=== PATIENT | female | born 1995 | race Caucasian/White ===

== ENCOUNTER → 2017-11-26 | Outpatient (CLI) | payer OTHER | LOC: LAB 15:48 | PROVIDERS: ATTEND Surgery | DX: L98.9 Disorder of the skin and subcutaneous tissue, unspecified (principal) | CPT/HCPCS: 36415; 86618; 86666; 86668; 86757 ==

== ENCOUNTER → 2018-05-26 | Outpatient (CLI) | payer OTHER ==
--- NOTE | 2018-05-26 14:44 | Diagnostic Imaging Report ---
PROCEDURE: US Non-OB pelvis comp/trans. TECHNIQUE: Multiple realtime grayscale images were obtained of the pelvis in various projections endovaginally. Transabdominal imaging was also performed. INDICATION: Pelvic pressure and dyspareunia. FINDINGS: The uterus measures 7.0 x 4.4 x 3.2 cm. Endometrium is thin at 1-2 mm. No myometrial mass is detected. Ovaries could not be visualized due to bowel gas. No adnexal mass or free fluid is seen. IMPRESSION: Nonvisualized ovaries. The study is otherwise unremarkable. Dictated by: Dictated on workstation # [id number]
== END ==
LOC: RAD 13:11
PROVIDERS: ATTEND Obstetrics & Gynecology
DX: N94.19 Other specified dyspareunia (principal); R10.2 Pelvic and perineal pain
CPT/HCPCS: 76830; 76856

== ENCOUNTER → 2021-06-13 | Outpatient (CLI) | payer BC | LOC: LAB 15:35 → MERGE 15:35 | PROVIDERS: ATTEND Obstetrics & Gynecology | DX: Z36.89 Encounter for other specified antenatal screening (principal) | CPT/HCPCS: 36415; 82105 ==

== ENCOUNTER → 2021-06-30 | Outpatient (CLI) | payer BC ==
--- NOTE | 2021-06-30 15:59 | Diagnostic Imaging Report ---
INDICATION: Routine anatomic survey TECHNIQUE: Multiple real-time grayscale images were obtained over the gravid uterus. COMPARISON: None FINDINGS: Single live intrauterine is identified. heart rate is documented at 152 bpm. position is cephalic. Amniotic fluid was not objectively measured, but subjectively appears to be within normal limits. Dominant placenta is identified posterior. There is however an additional area of placenta-like tissue identified anteriorly. There is suggestion of thin connection extending along the lateral margins of the gestational sac (image 61). Findings are highly suspicious for succenturiate placental lobe. Focal contraction is also a consideration. Cervix is closed and measures 4 cm in length. Anatomic survey was performed. There is mild pelviectasis bilaterally measuring 2 to 3 mm. There is no dilatation of the calyces. Anatomic survey is otherwise grossly unremarkable. Please see below for size and date measurements, as well as estimated weight. Biometrical measurements are as follows: Biparietal 4.94 cm, age 21 weeks 0 days. Head circumference 18.53 cm, age 21 weeks 0 days. Abdominal circumference 15.24 cm, age 20 weeks 4 days. Femur length 3.30 cm, age 20 weeks 3 days. Sonographic estimate age: 20 weeks 6 days. Sonographic estimated date of delivery: 11/11/2021. CLINICAL DATES: 20 weeks and 2 days with estimated date of delivery of 11/15/2021 Estimated Weight: 355 gm (+/- 52 gm). LMP percentile: 55%. heart rate: 152 beats per minute. number: 1 of 1. IMPRESSION: 1. Single live intrauterine . 2. Mild bilateral pelviectasis, but no appreciable calyceal dilatation. Follow-up is advised. 3. Probable succenturiate placental lobe. Anterior uterine contraction is also a consideration. This could be followed, as well. Dictated by: Dictated on workstation # [id number]
== END ==
LOC: RAD 10:00
PROVIDERS: ATTEND Obstetrics & Gynecology
DX: O99.891 Other specified diseases and conditions complicating pregnancy (principal); N13.30 Unspecified hydronephrosis; Z3A.20 20 weeks gestation of pregnancy
CPT/HCPCS: 76805

== ENCOUNTER → 2021-10-11 | Outpatient (CLI) | payer BC | LOC: LABNPT 10:48 | PROVIDERS: ATTEND Obstetrics & Gynecology | DX: O13.9 Gestational [pregnancy-induced] hypertension without significant proteinuria, unspecified trimester (principal) | CPT/HCPCS: 82570; 84156 ==

== ENCOUNTER → 2021-10-17 | Outpatient (CLI) | payer BC | LOC: LABNPT 10:47 | PROVIDERS: ATTEND Obstetrics & Gynecology | DX: O14.93 Unspecified pre-eclampsia, third trimester (principal); Z3A.00 Weeks of gestation of pregnancy not specified | CPT/HCPCS: 82570; 84156 ==

== ENCOUNTER 2021-10-23 14:26 | Outpatient (CLI) | payer BC ==
[~2021-10-23] VITALS: Ht 177.8 cm; Wt 77.9 kg
[2021-10-23] VITALS (8 sets, daily range): BP systolic 127–139; BP diastolic 87–93
[2021-10-23] MEDS ORDERED: PREN-37 PO (14:46)
[2021-10-23 15:21] LABS: BASOPHILS # (AUTO) 0.1 10^3/uL (0.0-0.1); BASOPHILS % (AUTO) 1 % (0-10); EOSINOPHILS # (AUTO) 0.1 10^3/uL (0.0-0.3); EOSINOPHILS % (AUTO) 1 % (0-10); HEMATOCRIT 35 % (35-52); LYMPHOCYTES # (AUTO) 1.7 10^3/uL (1.0-4.0); LYMPHOCYTES % (AUTO) 16 % (12-44); MEAN CORPUSCULAR HEMOGLOBIN 33 pg (25-34); MEAN CORPUSCULAR HGB CONC 37 g/dL (32-36); MEAN CORPUSCULAR VOLUME 89 fL (80-99); MEAN PLATELET VOLUME 11.1 fL (9.0-12.2); MONOCYTES # (AUTO) 0.7 10^3/uL (0.0-1.0); MONOCYTES % (AUTO) 7 % (0-12); NEUTROPHILS # (AUTO) 8.3 10^3/uL (1.8-7.8); NEUTROPHILS % (AUTO) 76 % (42-75); PLATELET COUNT 212 10^3/uL (130-400); WHITE BLOOD COUNT 10.9 10^3/uL (4.3-11.0)
[2021-10-23 15:22] LABS: BILIRUBIN,URINE NEGATIVE (NEGATIVE); CLARITY,URINE CLEAR; COLOR,URINE YELLOW; GLUCOSE, URINE (UA) NEGATIVE (NEGATIVE); KETONES,URINE NEGATIVE (NEGATIVE); LEUKOCYTE ESTERASE ,URINE NEGATIVE (NEGATIVE); NITRITE,URINE NEGATIVE (NEGATIVE); PROTEIN,URINE 2+ (NEGATIVE)
[2021-10-23 15:36] LABS: POTASSIUM 3.7 MMOL/L (3.6-5.0)
[2021-10-23 15:37] LABS: CALCIUM 9.2 MG/DL (8.5-10.1)
[2021-10-23 15:39] LABS: TOTAL PROTEIN 5.9 GM/DL (6.4-8.2)
[2021-10-23 15:41] LABS: BILIRUBIN,TOTAL 0.9 MG/DL (0.1-1.0)
[2021-10-23 15:42] LABS: CREATININE SERUM 0.77 MG/DL (0.60-1.30)
[2021-10-23 15:45] LABS: URIC ACID 6.6 MG/DL (2.6-7.2)
[2021-10-23 15:50] LABS: BACTERIA,URINE NEGATIVE /HPF; SQUAMOUS EPITHELIAL CELL,UR RARE /HPF
--- NOTE | 2021-10-24 08:27 | Physician Query-Final Dx ---
QUINCY10/24/21 0827: Clinic Account Progress/Dx Physician Query: Please give diagnosis Please include # weeks gestation Date of Service Oct 23, 2021 at 14:26 MIRA PITTS DO 10/25/21 1546: Clinic Account Progress/Dx DIAGNOSIS: Diagnosis 36 week, vaginal discharge QUINCY,FebOct 24, 2021 08:27 MIRA PITTS DO Oct 25, 2021 15:46
== END 2021-10-23 16:50 ==
LOC: LDRP 14:26 → WSo 14:26
PROVIDERS: ATTEND Obstetrics & Gynecology
DX: O42.10 Premature rupture of membranes, onset of labor more than 24 hours following rupture, unspecified weeks of gestation (principal); Z3A.00 Weeks of gestation of pregnancy not specified
CPT/HCPCS: 36415; 80053; 81000; 82570; 84156; 84550; 85025

== ENCOUNTER 2021-10-25 06:00 | Inpatient (IN) | payer BC ==
[~2021-10-25] VITALS: Ht 177.8 cm; Wt 78.3 kg
[2021-10-25] VITALS (48 sets, daily range): BP systolic 121–166; BP diastolic 73–107
[~2021-10-25 06:00] MED LIST: PREN-37 PO
[2021-10-25 07:55] LABS: BASOPHILS % (AUTO) 0 % (0-10); EOSINOPHILS # (AUTO) 0.2 10^3/uL (0.0-0.3); EOSINOPHILS % (AUTO) 2 % (0-10); HEMATOCRIT 38 % (35-52); HEMOGLOBIN 13.4 g/dL (11.5-16.0); LYMPHOCYTES # (AUTO) 1.8 10^3/uL (1.0-4.0); LYMPHOCYTES % (AUTO) 17 % (12-44); MEAN CORPUSCULAR HEMOGLOBIN 32 pg (25-34); MEAN CORPUSCULAR HGB CONC 35 g/dL (32-36); MEAN CORPUSCULAR VOLUME 91 fL (80-99); MEAN PLATELET VOLUME 11.4 fL (9.0-12.2); MONOCYTES # (AUTO) 0.7 10^3/uL (0.0-1.0); MONOCYTES % (AUTO) 6 % (0-12); NEUTROPHILS # (AUTO) 7.8 10^3/uL (1.8-7.8); NEUTROPHILS % (AUTO) 74 % (42-75); PLATELET COUNT 204 10^3/uL (130-400); WHITE BLOOD COUNT 10.5 10^3/uL (4.3-11.0)
[2021-10-25] MEDS ORDERED: D5 LR IV SOLUTION 1,000 ML IV SCH (08:00)
[2021-10-25] MEDS ORDERED: OXYTOCIN PRE-MIX DRIP 500 ML IV SCH (08:15)
[2021-10-25] MEDS ORDERED: fentaNYL 2 mcg/ml BUPIVA 0.125 100 ML ONE (10:14)
[2021-10-25] MEDS ORDERED: CATHETER FLUSH 10 ML SYR IV PRN (10:45)
[2021-10-25] MEDS ORDERED: diphenhydrAMINE 50 MG/ML INJ (BENADRYL) IV PRN (10:45)
[2021-10-25] MEDS ORDERED: fentaNYL 2 mcg/ml BUPIVA 0.125 100 ML IV SCH (10:45)
[2021-10-25] MEDS ORDERED: NALOXONE 0.4 MG/ML 1 ML (NARCAN) VIAL IV PRN ×2 (10:45→16:00)
[2021-10-25] MEDS ORDERED: LACTATED RINGERS 1,000 ML IV ONE (10:45)
[2021-10-25] MEDS ORDERED: ONDANSETRON 4 MG/2 ML (SDV) Z0FRAN IV PRN (10:45)
[2021-10-25] MEDS ORDERED: fentaNYL INJ 100 MCG/2 ML AMP ONE (10:50)
[2021-10-25] MEDS ORDERED: LIDOCAINE PF 2% 5 ML (XYLOCAINE) VIAL ONE (10:51)
[2021-10-25] MEDS ORDERED: CATHETER FLUSH 10 ML SYR IV SCH ×2 (14:00→22:00)
[2021-10-25] MEDS ORDERED: LIDOCAINE/EPI 2% 1:200,00 (XYLOCAINE) 10 ML VIAL ONE (14:25)
[2021-10-25] MEDS: OXYTOCIN PRE-MIX DRIP 500 ML IV SCH ×2 (15:20→15:52)
--- NOTE | 2021-10-25 15:54 | History & Physical-OB ---
OB - Chief Complaint & HPI Date/Time Date of Admission: Date of Admission: Oct 25, 2021 at 07:31 Date seen by a Provider: Oct 25, 2021 Time Seen by a Provider: 15:32 Chief Complaint/History OB-Reason for Admission/Chief: Induction of Labor Hx : 1 Hx Para: 0 Expected Date of Delivery: Nov 15, 2021 Gestational Age in Weeks: 37 Gestational Age in Days: 0 Other reason for admission: Preeclampsia Admission Nurse Assessment Rev: Yes Allergies and Home Medications Allergies Coded Allergies: Penicillins (Verified Allergy, Unknown, Hives, 10/23/21) Patient Home Medication List Home Medication List Reviewed: Yes Vit/Iron Fumarate/FA ( Tablet) 27 Mg Iron-800 Mcg Tablet, 1 EACH PO DAILY, (Reported) Entered as Reported by: EBONY PICKETT on 10/23/21 3988 Last Action: Reviewed OB - History Hx of Present Care: Yes Ultrasounds: Normal mid trimester US Obstetrical Complications: Pre-eclampsia Medical Complications: None Patient Past Medical History n.a Social History/Family History 2nd Hand Smoke Exposure: No Immunizations Influenza Vaccine Up-to-Date: Yes; Up-to-Date Hepatitis A: Yes Hepatitis B: Yes OB - Admission Exam Physical Exam Vitals: Vital Signs 10/25/21 10/25/21 10/25/21 07:12 11:00 12:15 Temp 37.4 Pulse 91 Resp 18 B/P (MAP) 141/98 (112) Pulse Ox 99 O2 Delivery Room Air HEENT: NCAT Heart: Rhythm Normal Lungs: Clear Abdomen: Non tender Extremities: Normal Reflexes: Normal Cervical Dilatation: 4cm Effacement: 75% Station: -1 Membranes: Intact Heart Rate: 130's Accelerations: Accelerations Present Decelerations: No Decelerations Short Term Variability: Present Molder Pipe Covering Variability: Average (6-25) Contractions on Admission: < 5 Minutes Apart Intensity: Firm Labs Laboratory Tests Test 10/25/21 07:20 Range/Units White Blood Count 10.5 4.3-11.0 10^3/uL Red Blood Count 4.21 3.80-5.11 10^6/uL Hemoglobin 13.4 11.5-16.0 g/dL Hematocrit 38 35-52 % Mean Corpuscular Volume 91 80-99 fL Mean Corpuscular Hemoglobin 32 25-34 pg Mean Corpuscular Hemoglobin Concent 35 32-36 g/dL Red Cell Distribution Width 12.8 10.0-14.5 % Platelet Count 204 130-400 10^3/uL Mean Platelet Volume 11.4 9.0-12.2 fL Immature Granulocyte % (Auto) 1 % Neutrophils (%) (Auto) 74 42-75 % Lymphocytes (%) (Auto) 17 12-44 % Monocytes (%) (Auto) 6 0-12 % Eosinophils (%) (Auto) 2 0-10 % Basophils (%) (Auto) 0 0-10 % Neutrophils # (Auto) 7.8 1.8-7.8 10^3/uL Lymphocytes # (Auto) 1.8 1.0-4.0 10^3/uL Monocytes # (Auto) 0.7 0.0-1.0 10^3/uL Eosinophils # (Auto) 0.2 0.0-0.3 10^3/uL Basophils # (Auto) 0.0 0.0-0.1 10^3/uL Immature Granulocyte # (Auto) 0.1 0.0-0.1 10^3/uL OB - Assessment/Plan/Diagnosis Assessment Assessment: induction of labor Admission Dx 26 yo @ 37 weeks Mild PreE GBS neg Admission Status: Inpatient Order (span 2 midnights) Reason for Inpatient Admission: IOL at 37 weeks Plan Plan: Induction Induction Method: MIRA DECKER DO Oct 25, 2021 15:54
--- NOTE | 2021-10-25 15:57 | OB Labor & Delivery Record ---
L&D History Date of Service Date of Service: Oct 25, 2021 History Expected Date of Delivery: Nov 15, 2021 Gestational Age in Weeks: 37 Hx : 1 Hx Para: 0 Complications Events: Pre-Eclampsia Operative Indications (Cesarea: N/A-Vaginal Delivery Intrapartal Events: None L&D Stage1 Stage One Onset of Labor - Date: Oct 25, 2021 Monitors and Tracing Monitor Mode: External Heart Rate: 140 Monitor Accelerations: Uniform Monitor Decelerations: Variable Station: -1 Care Home Variability: Average (6-10) Short Term Variability: Present Presentation: Vertex Vital Signs VS - Last 72 Hours, by Label 10/25/21 10/25/21 10/25/21 10/25/21 07:12 08:10 08:40 09:05 Temp 37.6 37.2 Pulse 85 96 100 85 Resp 18 18 18 18 B/P (MAP) 139/92 (108) 132/89 (103) 126/82 (97) Pulse Ox 100 O2 Delivery Room Air 10/25/21 10/25/21 10/25/21 10/25/21 09:40 10:05 10:30 10:45 Pulse 74 82 98 83 Resp 18 18 18 18 B/P (MAP) 128/87 (101) 149/103 (118) 139/96 (110) 143/102 (116) 10/25/21 10/25/21 10/25/21 10/25/21 10:57 11:00 11:03 11:08 Temp 37.4 Pulse 91 91 94 97 Resp 18 18 18 18 B/P (MAP) 154/104 (121) 159/99 (119) 164/104 (124) Pulse Ox 99 99 98 99 10/25/21 10/25/21 10/25/21 10/25/21 11:13 11:15 11:18 11:21 Pulse 92 84 93 87 Resp 18 18 18 18 B/P (MAP) 143/85 (104) 141/84 (103) 138/100 (113) 135/93 (107) Pulse Ox 98 98 99 99 10/25/21 10/25/21 10/25/21 10/25/21 11:24 11:27 11:30 11:33 Pulse 88 88 92 89 Resp 18 18 18 18 B/P (MAP) 139/93 (108) 147/94 (111) 130/85 (100) 140/90 (107) Pulse Ox 99 98 98 98 10/25/21 10/25/21 10/25/21 10/25/21 11:38 11:41 11:45 11:50 Pulse 86 81 95 107 Resp 18 18 18 18 B/P (MAP) 144/107 (119) 150/94 (112) 130/85 (100) 154/93 (113) Pulse Ox 99 99 99 99 10/25/21 10/25/21 10/25/21 10/25/21 11:55 12:00 12:05 12:10 Pulse 83 93 88 99 Resp 18 18 18 18 B/P (MAP) 149/96 (113) 159/91 (113) 148/102 (117) 151/98 (115) Pulse Ox 99 99 99 99 10/25/21 12:15 Pulse 91 Resp 18 B/P (MAP) 141/98 (112) Pulse Ox 99 Rupture of Membranes Spontaneous Ruture of Membrane: No Amniotic Membrane Rupture Time: 0755 Amniotic Membrane Fluid Desc.: Clear Vaginal Bleeding Description: Normal Show Induction/Anesthesia Epidural Cath Placement - Time: 1105 Progress/Notes Patient admitted for IOL due to PreE. Arom performed followed by Pitocin augmentation, she progressed after receiving epidural to complete and + 2 station. L&D Stage2 Stage Two Stage II Date: Oct 25, 2021 Monitors and Tracing Monitor Mode: External Heart Rate: 140 Monitor Accelerations: Uniform Monitor Decelerations: Variable Mechanic Assistant Variability: Average (6-10) Short Term Variability: Present Position: Right Occiput Anterior Cord Descript/Complications Cord Vessel Description: 3 Vessels Delivery Type Infant Delivery Method: Spontaneous Vaginal Anterior Shoulder: Left Episiotomy/Perineal Laceration Episiotomy Description: Perineal Extension/lac, 2nd degree Degree (describe repair) laceration repaired using 3-0 rapide and 2-0 vicryl suture Condition of Delivery 1 minute Comment: 9 5 minute Comment: 9 Notes Live female infant weight 7lbs 1 oz Condition of Condition of Infant: Living Exam: No Observed Abnormalities Resuscitation Resuscitation: N/A - Spontaneous Resp L&D Stage3 Stage Three Stage III Date: Oct 25, 2021 Pictocin Pitocin Administration Comment: 30 mu wide open after delivery of placenta Placenta Delivery Placenta Delivery: Spontaneous Delivery Summary Summary Estimated blood loss (mL): 350 Attending at delivery: Mira Pitts DO Condition of Delivery Examined: Cervix Examined, Uterus Explored Post Hemorrhage: No Condition of Mother stable Condition of Infant (s) stable MIRA PITTS DO Oct 25, 2021 15:57
--- NOTE | 2021-10-25 15:58 | Discharge Inst-Women's Service ---
Discharge Inst-Women's Serv Depart Medication/Instructions New, Converted or Re-Newed RX: Transmitted to Pharmacy Final Diagnosis PPD 1 NVD Problems Reviewed?: Yes Consults/Follow Up Additional Follow Up: Yes Orders/Referrals Dr. Pitts in 6 weeks Activity Activity: Activity as Tolerated Driving Instructions: No Driving for 1 Week NO SMOKING: NO SMOKING Nothing Inside Vagina: No Douching, No [place], No Tampons Diet Discharge Diet: No Restrictions Symptoms to Report to : Bleeding Excessive, Pain Increased, Fever Over 101 Degrees F, Vaginal Bleeding Increase, Questions/Concerns For Any Problems or Questions: Contact Your Physician MIRA PITTS DO Oct 25, 2021 15:58
[2021-10-25] MEDS ORDERED: DOCU100C37 PO (15:59)
[2021-10-25] MEDS ORDERED: IBUP-844 PO (15:59)
[2021-10-25] MEDS ORDERED: BENZ78AE5 TP (15:59)
[2021-10-25] MEDS ORDERED: DIBU30OI TOP (15:59)
[2021-10-25] MEDS ORDERED: MEASLES,MUMPS,RUBELLA 1 EA INJ SQ ONE (16:00)
[2021-10-25] MEDS ORDERED: HYDROcodone/APAP 5 MG/325 MG (LORTAB) TAB PO PRN (16:00)
[2021-10-25] MEDS ORDERED: WITCH HAZEL(TUCKS) 40 EA JAR TOP PRN (16:00)
[2021-10-25] MEDS ORDERED: BENZOCAINE/MENTHOL (DERMOPLAST) 56 ML CAN TP PRN (16:00)
[2021-10-25] MEDS ORDERED: TETANUS,DIPTH,PERTUSS P/F (BOOSTRIX) 0.5 ML VIAL IM ONE (16:00)
[2021-10-25] MEDS ORDERED: DIBUCAINE 1% OINTMENT 30 GM TUBE TOP PRN (16:00)
[2021-10-25] MEDS: IBUPROFEN 600 MG (MOTRIN) TAB PO SCH ×2 (17:31→23:48)
[2021-10-25] MEDS: DOCUSATE SODIUM 100 MG (COLACE) CAP PO SCH (21:17)
[2021-10-26 06:10] LABS: BASOPHILS % (AUTO) 0 % (0-10); EOSINOPHILS # (AUTO) 0.1 10^3/uL (0.0-0.3); EOSINOPHILS % (AUTO) 1 % (0-10); HEMATOCRIT 31 % (35-52); HEMOGLOBIN 11.2 g/dL (11.5-16.0); LYMPHOCYTES # (AUTO) 2.5 10^3/uL (1.0-4.0); LYMPHOCYTES % (AUTO) 18 % (12-44); MEAN CORPUSCULAR HEMOGLOBIN 33 pg (25-34); MEAN CORPUSCULAR HGB CONC 36 g/dL (32-36); MEAN CORPUSCULAR VOLUME 91 fL (80-99); MEAN PLATELET VOLUME 10.9 fL (9.0-12.2); MONOCYTES # (AUTO) 0.9 10^3/uL (0.0-1.0); MONOCYTES % (AUTO) 7 % (0-12); NEUTROPHILS # (AUTO) 10.1 10^3/uL (1.8-7.8); NEUTROPHILS % (AUTO) 74 % (42-75); PLATELET COUNT 185 10^3/uL (130-400); WHITE BLOOD COUNT 13.7 10^3/uL (4.3-11.0)
[2021-10-26 06:44] VITALS: BP 120/73
[2021-10-26] MEDS: IBUPROFEN 600 MG (MOTRIN) TAB PO SCH ×4 (06:46→23:54)
[2021-10-26] MEDS ORDERED: PRENATAL VITAMIN 1 EA TAB PO SCH (07:00)
--- NOTE | 2021-10-26 08:21 | Anesthesia-Regional Post-Op ---
Regional Patient Condition Mental Status: Alert, Oriented x3 Circulation: Same as Pre-Op Headache: Absent Sensation: Full Recovery Motor Block: Absent Post Op Complications Complications None Follow Up Care/Instructions Patient Instructions None needed. Anesthesia/Patient Condition Patient is doing well, no complaints, stable vital signs, no apparent adverse anesthesia problems. No complications reported per nursing. [place] [facility] [place]: Yes AISSATOU FLOOD CRNA Oct 26, 2021 08:21
[2021-10-26] MEDS ORDERED: DOCUSATE CALCIUM 240 MG (SURFAK) CAP PO SCH (09:00)
[2021-10-26 10:00] VITALS: BP 120/73
--- NOTE | 2021-10-26 10:13 | Postpartum Progress Note ---
Note Note Day # 1 Subjective: Patient is without complaints. Ambulating, voiding. Tolerating a regular diet without nausea or vomiting. Normal lochia. Pain is well controlled with oral pain medications. Physical Exam: General - Alert and oriented, no apparent distress Abdomen - Soft, appropriately tender to palpation, non-distended, fundus firm at umbilicus Extremities - no edema, negative Linda's bilaterally Assessment: Post- day # 1, status post vaginal delivery. Recovering well, hemodynamically stable Acute blood loss anemia Pre-eclampsia Plan: Routine care. Encourage breast feeding. Encourage ambulation. Ferrous sulfate supplementation. Plan for discharge tomorrow Vitals - Labs Vital Signs - I&O Vital Signs Date Time Temp Pulse Resp B/P (MAP) Pulse Ox O2 Delivery O2 Flow Rate FiO2 10/26/21 06:44 36.4 72 18 120/73 (89) 97 Room Air 10/25/21 23:47 36.5 76 18 127/86 (100) 96 Room Air 10/25/21 21:17 36.5 81 18 143/83 (103) 97 Room Air 10/25/21 17:28 94 18 137/91 (106) 10/25/21 16:20 88 18 136/84 (101) 10/25/21 16:05 97 18 121/75 (90) 10/25/21 15:50 37.9 100 18 127/74 (91) 10/25/21 15:35 106 18 139/80 (99) 10/25/21 15:26 37.9 107 18 133/86 (102) 10/25/21 15:20 99 18 134/75 (94) 10/25/21 15:00 123 18 139/82 (101) 10/25/21 14:45 123 18 143/79 (100) 10/25/21 14:30 127 18 150/85 (106) 10/25/21 14:15 118 18 166/97 (120) 10/25/21 14:00 97 18 154/98 (116) 99 10/25/21 13:45 93 18 145/92 (109) 100 10/25/21 13:30 37.1 90 18 150/96 (114) 98 10/25/21 13:15 90 18 139/86 (103) 98 10/25/21 13:00 80 18 124/73 (90) 98 10/25/21 12:45 78 18 130/73 (92) 98 10/25/21 12:30 37.3 87 18 156/92 (113) 99 10/25/21 12:15 91 18 141/98 (112) 99 10/25/21 12:10 99 18 151/98 (115) 99 10/25/21 12:05 88 18 148/102 (117) 99 10/25/21 12:00 93 18 159/91 (113) 99 10/25/21 11:55 83 18 149/96 (113) 99 10/25/21 11:50 107 18 154/93 (113) 99 10/25/21 11:45 95 18 130/85 (100) 99 10/25/21 11:41 81 18 150/94 (112) 99 10/25/21 11:38 86 18 144/107 (119) 99 10/25/21 11:33 89 18 140/90 (107) 98 10/25/21 11:30 92 18 130/85 (100) 98 10/25/21 11:27 88 18 147/94 (111) 98 10/25/21 11:24 88 18 139/93 (108) 99 10/25/21 11:21 87 18 135/93 (107) 99 10/25/21 11:18 93 18 138/100 (113) 99 10/25/21 11:15 84 18 141/84 (103) 98 10/25/21 11:13 92 18 143/85 (104) 98 10/25/21 11:08 97 18 164/104 (124) 99 10/25/21 11:03 94 18 159/99 (119) 98 10/25/21 11:00 37.4 91 18 99 10/25/21 10:57 91 18 154/104 (121) 99 10/25/21 10:45 83 18 143/102 (116) 10/25/21 10:30 98 18 139/96 (110) I & O 10/26/21 07:00 Intake Total 2000 ml Balance 2000 ml Labs Laboratory Tests 10/26/21 06:05: White Blood Count 13.7H, Red Blood Count 3.45L, Hemoglobin 11.2L, Hematocrit 31L , Mean Corpuscular Volume 91, Mean Corpuscular Hemoglobin 33, Mean Corpuscular Hemoglobin Concent 36, Red Cell Distribution Width 12.9, Platelet Count 185, Mean Platelet Volume 10.9, Immature Granulocyte % (Auto) 1, Neutrophils (%) (Auto) 74, Lymphocytes (%) (Auto) 18, Monocytes (%) (Auto) 7, Eosinophils (%) (Auto) 1, Basophils (%) (Auto) 0, Neutrophils # (Auto) 10.1H, Lymphocytes # (Auto) 2.5, Monocytes # (Auto) 0.9, Eosinophils # (Auto) 0.1, Basophils # (Auto) 0.0, Immature Granulocyte # (Auto) 0.1 WILMAN HUMPHREY CLINICAL BUSINESS ANALYST Oct 26, 2021 10:13
[2021-10-26] MEDS: DOCUSATE SODIUM 100 MG (COLACE) CAP PO SCH ×2 (12:40→20:49)
[2021-10-26 15:30] VITALS: BP 135/98
[2021-10-26 22:05] VITALS: BP 141/90
[2021-10-27] MEDS: IBUPROFEN 600 MG (MOTRIN) TAB PO SCH (04:59)
[2021-10-27 05:02] VITALS: BP 123/81
--- NOTE | 2021-10-27 08:52 | Postpartum Progress Note ---
Note Note Day # 2 Subjective: Patient is without complaints. Ambulating, voiding. Tolerating a regular diet without nausea or vomiting. Normal lochia. Pain is well controlled with oral pain medications. Physical Exam: General - Alert and oriented, no apparent distress Abdomen - Soft, appropriately tender to palpation, non-distended, fundus firm at umbilicus Extremities - no edema, negative Linda's bilaterally Assessment: Post- day # 2, status post vaginal delivery. Recovering well, hemodynamically stable Acute blood loss anemia Pre-eclampsia Plan: Routine care. Encourage breast feeding. Encourage ambulation. Ferrous sulfate supplementation. Plan for discharge today Vitals - Labs Vital Signs - I&O Vital Signs Date Time Temp Pulse Resp B/P (MAP) Pulse Ox O2 Delivery O2 Flow Rate FiO2 10/27/21 05:02 36.8 89 16 123/81 (95) 98 Room Air 10/26/21 22:05 36.6 97 16 141/90 (107) 98 Room Air 10/26/21 15:30 36.8 85 18 135/98 (110) 98 Room Air 10/26/21 10:00 36.4 88 18 120/73 (89) 98 Room Air WILMAN HUMPHREY APRN Oct 27, 2021 08:52
== END 2021-10-27 10:40 | disposition home or self-care (01) | DRG 806 ==
LOC: LDRP 07:31
PROVIDERS: ADMIT Obstetrics & Gynecology; ATTEND Obstetrics & Gynecology
PROC: 10E0XZZ Delivery of Products of Conception, External Approach (ICD-10-PCS; principal; 2021-10-25)
PROC: 0KQM0ZZ Repair Perineum Muscle, Open Approach (ICD-10-PCS; 2021-10-25)
PROC: 0W8NXZZ Division of Female Perineum, External Approach (ICD-10-PCS; 2021-10-25)
PROC: 10907ZC Drainage of Amniotic Fluid, Therapeutic from Products of Conception, Via Natural or Artificial Opening (ICD-10-PCS; 2021-10-25)
DX: O14.04 Mild to moderate pre-eclampsia, complicating childbirth (principal); D62 Acute posthemorrhagic anemia; Z37.0 Single live birth; O70.1 Second degree perineal laceration during delivery; O90.81 Anemia of the puerperium; Z3A.37 37 weeks gestation of pregnancy; Z88.0 Allergy status to penicillin
CPT/HCPCS: 36415; 85025; 86850; 86900; 86901

== ENCOUNTER → 2022-10-01 | Outpatient (CLI) | payer BC ==
[~2022-10-01] VITALS: Ht 177.8 cm; Wt 63.6 kg
[~2022-10-01] MED LIST changes: +ACHD5005 PO; +BENZ78AE5 TP; +DIBU30OI TOP; +DOCU100C37 PO; +IBUP-844 PO
== END | disposition home or self-care (01) ==
LOC: PREOP 11:43
PROVIDERS: ATTEND Obstetrics & Gynecology
DX: Z01.818 Encounter for other preprocedural examination (principal)

== ENCOUNTER 2022-10-02 06:05 | Day surgery (SDC) | payer BC ==
[~2022-10-02] VITALS: Ht 177.8 cm; Wt 63.6 kg
[2022-10-02] VITALS (11 sets, daily range): BP systolic 104–117; BP diastolic 63–79
[~2022-10-02 06:05] MED LIST changes: -ACHD5005 PO
[2022-10-02] MEDS ORDERED: LACTATED RINGERS 1,000 ML IV PRN (06:45)
[2022-10-02 06:48] LABS: BASOPHILS % (AUTO) 1 % (0-10); EOSINOPHILS # (AUTO) 0.1 10^3/uL (0.0-0.3); EOSINOPHILS % (AUTO) 1 % (0-10); HEMATOCRIT 42 % (35-52); HEMOGLOBIN 14.9 g/dL (11.5-16.0); LYMPHOCYTES # (AUTO) 2.3 10^3/uL (1.0-4.0); LYMPHOCYTES % (AUTO) 40 % (12-44); MEAN CORPUSCULAR HEMOGLOBIN 32 pg (25-34); MEAN CORPUSCULAR HGB CONC 36 g/dL (32-36); MEAN CORPUSCULAR VOLUME 90 fL (80-99); MEAN PLATELET VOLUME 9.3 fL (9.0-12.2); MONOCYTES # (AUTO) 0.4 10^3/uL (0.0-1.0); MONOCYTES % (AUTO) 7 % (0-12); NEUTROPHILS # (AUTO) 2.9 10^3/uL (1.8-7.8); NEUTROPHILS % (AUTO) 51 % (42-75); PLATELET COUNT 263 10^3/uL (130-400); WHITE BLOOD COUNT 5.7 10^3/uL (4.3-11.0)
[2022-10-02] MEDS ORDERED: proPOfol 200 MG/20 ML (DIPRIVAN) VIAL IV ONE (06:55)
[2022-10-02] MEDS ORDERED: dexAMETHasone INJ 10 MG/ML 1 ML VIAL ONE (06:55)
[2022-10-02] MEDS ORDERED: fentaNYL INJECTION 100 MCG/2 ML VIAL ONE (06:55)
[2022-10-02] MEDS ORDERED: LIDOCAINE PF 2% 5 ML VIAL ONE (06:55)
[2022-10-02] MEDS ORDERED: MIDAZOLAM INJ 2 MG/2 ML VIAL ONE (06:55)
[2022-10-02] MEDS ORDERED: ONDANSETRON 4 MG/2 ML (SDV) Z0FRAN ONE (06:55)
--- NOTE | 2022-10-02 07:10 | Discharge Inst-Women's Service ---
Discharge Inst-Women's Serv Depart Medication/Instructions New, Converted or Re-Newed RX: Transmitted to Pharmacy Problems Reviewed?: Yes Consults/Follow Up Additional Follow Up: Yes Orders/Referrals Dr. Pitts in 7-10 days Activity Activity: Activity as Tolerated Driving Instructions: No Driving for 1 Week NO SMOKING: NO SMOKING Nothing Inside Vagina: No Douching, No [place], No Tampons Diet Discharge Diet: No Restrictions Symptoms to Report to : Bleeding Excessive, Pain Increased, Fever Over 101 Degrees F, Vaginal Bleeding Increase, Questions/Concerns For Any Problems or Questions: Contact Your Physician MIRA PITTS DO Oct 02, 2022 07:10
[2022-10-02] MEDS ORDERED: ACHD5005 PO (07:11)
[2022-10-02] MEDS ORDERED: ONDANSETRON 4 MG/2 ML (SDV) Z0FRAN IVP PRN ×2 (07:15→08:00)
[2022-10-02] MEDS ORDERED: KETOROLAC INJ 30 MG/ML VIAL IVP ONE (07:15)
[2022-10-02] MEDS ORDERED: D5 LR 1,000 ML IV SOLN 1,000 ML IV SCH (07:15)
[2022-10-02] MEDS ORDERED: HYDROcodone/ACETAMINOPHEN 5 MG/325 MG TABLET PO PRN (07:15)
--- NOTE | 2022-10-02 07:19 | Progress Note-Pre Operative ---
Pre-Operative Progress Note Date of Available H&P: Oct 02, 2022 Date H&P Reviewed: Oct 02, 2022 Time H&P Reviewed: 07:00 History & Physical: H&P Reviewed, Patient Examed, No changes noted Pre-Operative Diagnosis: Missed MIRA Pastor DO Oct 02, 2022 07:19
[2022-10-02] MEDS ORDERED: METHYLERGONOVINE 0.2 MG/ML (METHERGINE) AMP ONE (07:36)
[2022-10-02] MEDS ORDERED: SEVOFLURANE (ULTANE) 15 ML INHAL SOLN ONE (07:51)
[2022-10-02] MEDS ORDERED: KETOROLAC INJ 30 MG/ML VIAL ONE (07:51)
[2022-10-02] MEDS ORDERED: morphine INJ 10 MG/ML 1ML (SYR OR VIAL) IVP ONE (08:00)
--- NOTE | 2022-10-02 08:16 | OPERATIVE REPORT ---
DATE OF SERVICE: 10/02/2022 PREOPERATIVE DIAGNOSIS: A 27-year-old female with missed POSTOPERATIVE DIAGNOSIS: A 27-year-old female with missed . PROCEDURE: Suction D and C. SURGEON: Mira Pitts DO ANESTHESIA: LMA general. ESTIMATED BLOOD LOSS: 300 mL URINE OUTPUT: 250 mL clear, drained at the start of the procedure. FLUIDS: 1000 mL lactated Ringer's solution. FINDINGS: Grossly normal-appearing external female genitalia with a moderate to copious amount of products of conception. SPECIMEN SENT: Products of conception. INDICATIONS FOR PROCEDURE: This 27-year-old female is the patient who sought care in my office. For care, had started with a questionable viability of and there was what appeared to be cystic structure consistent with a gestational sac at her first ultrasound and a possible pole. When she returned for her second ultrasound 3 weeks later, there had been no increase in size in the pole and the cystic portion of the and endometrium had become multicystic and 3 definitive separate cystic sacs were noted with no development of a pole or signs of viability. With an hCG level of over 200,000, discussed with the patient the concern for possible gestational trophoblastic disease and a molar . Discussed with the patient proceeding with D and C. Risks of procedure discussed with the patient in detail, and after all of her questions were answered with her present, consent was obtained in the preoperative area and the patient was taken to the operating room. OPERATIVE REPORT IN DETAIL: Once in the operating room, anesthesia was found to be adequate. She was placed in dorsal lithotomy position, prepped and draped in normal sterile fashion. A timeout was performed. A weighted speculum inserted to the patient's vagina. Right angle retractor was utilized. Cervix was grasped at 12 o'clock position using a long Allis clamp. I then gently sounded uterine cavity and was found to be approximately 10 cm. I gently dilated the cervix using Hegar dilators to maximum dilatation of 12 mm, at which point I selected a #12 Kavon rigid suction curette and advanced into the uterus, applied Ewing suction to a maximum suction pressure of 70 mmHg. I then gently rotated the suction curette, clearing the endometrium of all products of conception. This was done on several different passes until there was little to no products expressed and removed. I then performed a gentle light curettage using a sharp medium size endometrial curette after which there was little to no bleeding noted. To ensure excellent postoperative hemostasis, I had anesthesia administer 0.2 mg of Methergine IM. All instruments were removed from the patient's vagina. The patient tolerated the procedure well and sent to recovery area in stable condition. Lap and sponge counts were correct at the end of the procedure. Instrument counts correct as well. Job ID: [id number] DocumentID: [id number] Dictated Date: 10/02/2022 07:58:52 Advanced Practice Nurse Psychotherapist Date: 10/02/2022 08:14:00 Dictated By: MIRA PITTS DO
[2022-10-02] MEDS ORDERED: NEOSTIGMINE (BLOXIVERZ ) 1 MG/1ML 10 ML VIAL ONE (08:33)
[2022-10-02] MEDS ORDERED: ROCURONIUM 50 MG/5 ML (ZEMURON) VIAL IV ONE (08:33)
--- NOTE | 2022-10-02 08:42 | Anesthesia-General Post-Op ---
General Patient Condition Mental Status/LOC: Same as Preop Cardiovascular: Satisfactory Nausea/Vomiting: Absent Respiratory: Satisfactory Pain: Controlled Complications: Absent Post Op Complications Complications None Follow Up Care/Instructions Patient Instructions None needed. Anesthesia/Patient Condition Patient Condition Patient is awake in PACU and doing well, no complaints, stable vital signs, no apparent adverse anesthesia problems. No complications reported per nursing. KRISTY VASQUEZ DO Oct 02, 2022 08:42
== END 2022-10-02 09:40 | disposition home or self-care (01) ==
LOC: SDC 06:05 → EDSTATUS 12:45
PROVIDERS: ATTEND Obstetrics & Gynecology
DX: O02.1 Missed abortion (principal); Z28.310 Unvaccinated for COVID-19
CPT/HCPCS: 36415; 85025; 86850; 86900; 86901; 87081